=== PATIENT | male | born 1975 | race Caucasian/White ===

== ENCOUNTER → 2018-04-26 14:54 | Emergency (ER) | payer MEDICAID, MEDICARE ==
[2018-04-26 16:14] VITALS: BP 163/77
--- NOTE | 2018-04-26 17:08 | ED ---
Substance Abuse/Use - HPI Summary HPI Summary: Patient is a 43-year-old male presenting to the ED from [facility] with a concern for alcohol detox symptoms and withdrawal. He states his last binge drinking was Wednesday night and he has been without alcohol essentially for 2 days. His girlfriend was concerned over his bilateral hand tremors and brought him to [facility]. He was given Ativan at that time and transferred to us for further care. On arrival, patient appears well, non-tremulous. He states he has no intention of quitting alcohol at this time but he is aware of treatment facilities when he is ready. He states he drinks proximally 6-12 beers per day, one pack per day smoking history, marijuana use, but denies any other drug use. He states he has been feeling otherwise well, denying any recent illness. Denies any chest pain or shortness of breath. Denies any abdominal pain, nausea, vomiting, visual auditory hallucinations, suicidal ideations or homicidal ideations. - History Of Current Complaint Chief Complaint: EDSubstanceAbuse Stated Complaint: DETOX Time Seen by Provider: 04/26/18 14:59 Hx Obtained From: Patient Onset/Duration of Drug/ETOH Abuse: Minutes Ingestion History: Type/Name Of Drug Overdose Characteristics: Oral Timing Of Abuse: Daily Severity Initially: Moderate Severity Currently: None Aggravating Factor(s): Nothing Alleviating Factor(s): Nothing Associated Signs And Symptoms: Negative - Risk Factor(s) Completed Suicide Risk Factors: Male - Allergies/Home Medications Allergies/Adverse Reactions: Allergies Allergy/AdvReac Type Severity Reaction Status Date / Time MS Bee Venom [Bee Venom] Allergy Severe Swelling Verified 07/24/15 13:54 Of Face,Lips,& Throat MS Penicillins [Penicillins] Allergy Unknown Unknown Verified 07/24/15 13:54 Reaction Details Home Medications: Home Medications Acetaminophen TAB* [Tylenol TAB*] 650 mg PO Q6H PRN 04/26/18 [History Confirmed 04/26/18] PMH/Surg Hx/FS Hx/Imm Hx Previously Healthy: Yes Endocrine/Hematology History: Denies: Hx Diabetes Cardiovascular History: Denies: Hx Angina, Hx Congestive Heart Failure, Hx Coronary Artery Disease, Hx Hypercholesterolemia, Hx Hypertension, Hx Myocardial Infarction Respiratory History: Reports: Hx Seasonal Allergies Denies: Hx Chronic Obstructive Pulmonary Disease (COPD) GI History: Reports: Hx Gastroesophageal Reflux Disease Denies: Hx Ulcer History: Denies: Hx Dialysis, Hx Renal Disease Musculoskeletal History: Reports: Other Musculoskeletal History - History of Legg Perthe disease - Surgical History Surgery Procedure, Year, and Place: as a child hip sx. rt forearm sx 2 yrs ago Hx Anesthesia Reactions: No - Immunization History Date of Tetanus Vaccine: Unk Date of Influenza Vaccine: None Hx Pertussis Vaccination: No Immunizations Up to Date: Yes Infectious Disease History: No Infectious Disease History: Denies: Traveled Outside the [place] in Last 30 Days - Social History Occupation: Employed Full-time Lives: With Family Alcohol Use: Daily Alcohol Amount: 2 days ago Substance Use Type: Reports: Marijuana, Prescribed Substance Use Comment - Amount & Last Used: tincture use, not daily Smoking Status (MU): Heavy Every Day Tobacco Smoker Type: Cigarettes Have You Smoked in the Last Year: Yes Review of Systems Constitutional: Negative Negative: Fever, Chills, Fatigue, Skin Diaphoresis Negative: Epistaxis, Dental Pain Negative: Palpitations, Chest Pain Negative: Shortness Of Breath, Cough Negative: Abdominal Pain, Vomiting, Diarrhea, Nausea Genitourinary: Negative Positive: no symptoms reported, see HPI Negative: Arthralgia, Myalgia Skin: Negative Neurological: Negative Negative: Anxious, Depressed All Other Systems Reviewed And Are Negative: Yes Physical Exam Triage Information Reviewed: Yes Vital Signs On Initial Exam: Initial Vitals Temp Pulse Resp BP Pulse Ox 98 F 82 18 150/84 98 04/26/18 14:56 04/26/18 14:56 04/26/18 14:56 04/26/18 14:56 04/26/18 14:56 Vital Signs Reviewed: Yes Appearance: Positive: Well-Appearing, No Pain Distress, Well-Nourished Skin: Positive: Skin Color Reflects Adequate Perfusion, Other - scleral icteris Head/Face: Positive: Normal Head/Face Inspection Eyes: Positive: EOMI, CATHERINE, Conjunctiva Clear Neck: Positive: Supple, No Lymphadenopathy Respiratory/Lung Sounds: Positive: Clear to Auscultation, Breath Sounds Present Cardiovascular: Positive: RRR, Pulses are Symmetrical in both Upper and Lower Extremities Musculoskeletal: Positive: Normal, Strength/ROM Intact Neurological: Positive: Speech Normal Psychiatric: Positive: Normal, Affect/Mood Appropriate AVPU Assessment: Alert Diagnostics - Vital Signs Vital Signs Temp Pulse Resp BP Pulse Ox 04/26/18 16:13 98.1 F 78 16 163/77 99 04/26/18 14:56 98 F 82 18 150/84 98 - Laboratory Lab Statement: Any lab studies that have been ordered have been reviewed, and results considered in the medical decision making process. Course/Dx - Course Course Of Treatment: Patient is evaluated for alcohol withdrawal symptoms. On arrival, he is already had Ativan at the other facility of [facility] from where he was transferred. He states this improved his tremors bilaterally. He states he has had tremors in the past but very mild as they weren't this afternoon. Patient states he does not wish to quit drinking at this time. For this reason, I am not concerned over detox and withdrawal effects including hallucinations, tremors and seizures. Patient states he would not like to stay and he will most likely continue to drink as he is not ready for alcohol rehabilitation. He states he understands where to go to alcohol rehabilitation when he is ready. As I am not concerned over his withdrawal effects, he is able to be discharged at this time as he is stable, with normal vital signs and appearing well. He has a stable ride home. - Diagnoses Differential Diagnosis/HQI/PQRI: Positive: Acute Psychosis, Alcohol Abuse, Alcohol Withdrawal, Anxiety, Drug Abuse, Metabolic Disorder Provider Diagnoses: Alcohol abuse Discharge - Sign-Out/Discharge Documenting (check all that apply): Patient Departure - Discharge Plan Condition: Stable Disposition: HOME Referrals: Forrest Flores MD [Primary Care Provider] - Additional Instructions: If you develop any worsening symptoms, return to the ED - Billing Disposition and Condition Condition: STABLE Disposition: Home
== END | disposition home or self-care (01) ==
LOC: ED 14:54
DX: F10.10 Alcohol abuse, uncomplicated (principal); Z88.0 Allergy status to penicillin; Z91.030 Bee allergy status; F17.210 Nicotine dependence, cigarettes, uncomplicated
CPT/HCPCS: 99282